=== PATIENT | male | born 1965 | race Two or more races ===

== ENCOUNTER 2019-06-19 15:04 | Emergency (ER) | payer BC ==
[~2019-06-19] VITALS: Ht 175.3 cm; Wt 87.1 kg
[2019-06-19 15:11] VITALS: BP 149/82
== END 2019-06-19 16:42 | disposition home or self-care (01) ==
LOC: ER 15:04
DX: E11.40 Type 2 diabetes mellitus with diabetic neuropathy, unspecified (principal)
CPT/HCPCS: 70450